=== PATIENT | female | born 1960 | race Caucasian/White ===

== ENCOUNTER → 2017-11-01 | Outpatient (CLI) | payer OTHER | LOC: M.RAD 10:10 | DX: Z12.31 Encounter for screening mammogram for malignant neoplasm of breast (principal) ==

== ENCOUNTER 2020-07-04 14:35 | Emergency (ER) | payer OTHER ==
[~2020-07-04] VITALS: Ht 152.4 cm; Wt 74.8 kg
[2020-07-04] MEDS ORDERED: CIPROFLOXIN HC2.5 M1 OPHTHALMIC (15:16)
[2020-07-04 15:46] VITALS: BP 168/76
== END 2020-07-04 15:47 | disposition home or self-care (01) ==
LOC: M.ERS 14:35
DX: H57.11 Ocular pain, right eye (principal); Z88.1 Allergy status to other antibiotic agents; Z88.5 Allergy status to narcotic agent; Z90.710 Acquired absence of both cervix and uterus